=== PATIENT | male | born 2000 | race Caucasian/White ===

== ENCOUNTER 2021-12-03 10:38 | Emergency (ER) | payer SELFPAY ==
[2021-12-03] MEDS ORDERED: IBU600 MG PO (12:38)
== END 2021-12-03 12:43 | disposition home or self-care (01) ==
LOC: ER1 10:38
DX: S80.12XA Contusion of left lower leg, initial encounter (principal); X58.XXXA Exposure to other specified factors, initial encounter
CPT/HCPCS: 73590; 73610; 73630; 96372; 99283; J1885